=== PATIENT | female | born 1975 | race Caucasian/White ===

== ENCOUNTER 2019-04-21 17:29 | Emergency (ER) | payer MEDICAID ==
[~2019-04-21] VITALS: Ht 154.9 cm; Wt 73.5 kg
[2019-04-21 17:44] VITALS: Ht 154.9 cm; Wt 73.5 kg
[2019-04-21 19:45] VITALS: BP 136/85
== END 2019-04-21 19:45 | disposition home or self-care (01) ==
LOC: ED 17:29
DX: J06.9 Acute upper respiratory infection, unspecified (principal); M79.10 Myalgia, unspecified site

== ENCOUNTER 2019-07-12 11:24 | Emergency (ER) | payer MEDICAID ==
[~2019-07-12] VITALS: Ht 154.9 cm; Wt 74.2 kg
[2019-07-12 11:35] VITALS: Ht 154.9 cm; Wt 74.2 kg
[2019-07-12 12:55] LABS: CALCIUM 8.2 mg/dL (8.5-10.1); CHLORIDE SERUM 102 mmol/L (98-107); CREATININE SERUM 0.9 mg/dL (0.6-1.0); GFR1 > 60 mL/min; GLUCOSE SERUM 198 mg/dL (74-106); POTASSIUM SERUM 3.6 mmol/L (3.5-5.1); SODIUM SERUM 137 mmol/L (136-145)
[2019-07-12 12:59] LABS: ALBUMIN 3.7 g/dL (3.4-5.0); ALKALINE PHOSPHATASE 73 U/L (46-116); ALT/SGPT 29 U/L (14-59); AST/SGOT 19 U/L (15-37); BILIRUBIN TOTAL 0.3 mg/dL (0.20-1.00); TOTAL PROTEIN, SERUM 7.9 g/dL (6.4-8.2)
[2019-07-12 13:06] LABS: BASOPHIL % 0.7 % (0-2); PLATELET COUNT 364 x10^3mcL (130-400)
[2019-07-12 13:28] LABS: RED CELL DISTRIBUTION WIDTH 16.3 % (11.5-14.5)
[2019-07-12 15:29] VITALS: BP 132/71
== END 2019-07-12 15:29 | disposition home or self-care (01) ==
LOC: ED 11:24
PROVIDERS: Student in an Organized Health Care Education/Training Program
DX: R07.89 Other chest pain (principal); R11.0 Nausea; Z98.890 Other specified postprocedural states
CPT/HCPCS: 36415; 83880; J1885; Q0092

== ENCOUNTER 2020-04-29 11:18 | Emergency (ER) | payer MEDICAID ==
[~2020-04-29] VITALS: Ht 162.6 cm; Wt 73.5 kg
[2020-04-29 11:27] VITALS: Ht 162.6 cm; Wt 73.5 kg
[2020-04-29 13:10] LABS: BASOPHIL % 0.4 % (0-2); PLATELET COUNT 338 x10^3mcL (130-400)
[2020-04-29 13:11] LABS: RED CELL DISTRIBUTION WIDTH 16.9 % (11.5-14.5)
[2020-04-29 13:27] LABS: ALBUMIN 3.8 g/dL (3.4-5.0); ALKALINE PHOSPHATASE 59 U/L (46-116); ALT/SGPT 26 U/L (14-59); AST/SGOT 20 U/L (15-37); BILIRUBIN TOTAL 0.36 mg/dL (0.20-1.00); CALCIUM 8.8 mg/dL (8.5-10.1); CHLORIDE SERUM 102 mmol/L (98-107); CREATININE SERUM 0.9 mg/dL (0.6-1.0); GFR1 > 60 mL/min; GLUCOSE SERUM 137 mg/dL (74-106); LIPASE 92 IU/L (73-393); POTASSIUM SERUM 3.6 mmol/L (3.5-5.1); SODIUM SERUM 136 mmol/L (136-145)
[2020-04-29 15:23] VITALS: BP 130/54
== END 2020-04-29 15:23 | disposition home or self-care (01) ==
LOC: ED 11:18
PROVIDERS: Emergency Medicine
DX: K80.80 Other cholelithiasis without obstruction (principal); Z98.890 Other specified postprocedural states
CPT/HCPCS: J1885; J2270; J2405; Q0092

== ENCOUNTER 2020-05-09 16:01 | Emergency (ER) | payer MEDICAID ==
[~2020-05-09] VITALS: Ht 162.6 cm; Wt 68.9 kg
[~2020-05-09 16:01] MED LIST: AUGMENTIN 875-1 EACH PO
[2020-05-09 16:19] VITALS: Ht 162.6 cm; Wt 68.9 kg
[2020-05-09 17:24] VITALS: BP 136/98
== END 2020-05-09 17:24 | disposition home or self-care (01) ==
LOC: ED 16:01
DX: S31.119D Laceration without foreign body of abdominal wall, unspecified quadrant without penetration into peritoneal cavity, subsequent encounter (principal); Z90.49 Acquired absence of other specified parts of digestive tract; Z48.01 Encounter for change or removal of surgical wound dressing; Z98.890 Other specified postprocedural states; X58.XXXD Exposure to other specified factors, subsequent encounter